=== PATIENT | male | born 1960 | race Caucasian/White ===

== ENCOUNTER 2024-07-20 13:07 | Emergency (ER) | payer SELFPAY ==
[~2024-07-20] VITALS: Ht 177.8 cm; Wt 83.9 kg
[2024-07-20 13:14] VITALS: O2SAT 95
[2024-07-20] MEDS ORDERED: KETOROLAC 30MG/ML VIAL IM ONE (16:45)
[2024-07-20] MEDS ORDERED: ACETAMINOPHEN 325MG TABLET PO ONE (16:45)
[2024-07-20] MEDS ORDERED: CETI1TAB MT (17:42)
[2024-07-20] MEDS ORDERED: TUSSL MT (17:42)
[2024-07-20] MEDS ORDERED: BENZ200C52 MT (17:42)
[2024-07-20] MEDS: KETOROLAC 30MG/ML VIAL IM NR (19:57)
[2024-07-20] MEDS: ACETAMINOPHEN 325MG TABLET PO NR (19:58)
[2024-07-20 19:59] VITALS: BP 125/86; PULSE 103; RESP 16; TEMP 38.72532; O2SAT 95
== END 2024-07-20 20:04 | disposition home or self-care (01) ==
LOC: ER 13:07
DX: B34.9 Viral infection, unspecified (principal); Z98.890 Other specified postprocedural states
CPT/HCPCS: 99283; 71045; 96372; J1885